=== PATIENT | female | born 1935 | race Two or more races ===

== ENCOUNTER 2017-01-27 19:54 | Emergency (ER) | payer MEDICARE, MEDICAID ==
[2017-01-27] MEDS ORDERED: ONDANSETRON 4 MG/2ML 2 ML VIAL ONE (21:17)
[2017-01-27] MEDS ORDERED: LACTATED RINGERS 1,000 ML ONE (21:17)
[2017-01-27] MEDS ORDERED: FENTANYL 100 MCG/2 ML VIAL ONE ×2 (21:17→23:36)
[2017-01-27 21:24] LABS: ABSOLUTE NEUTROPHIL COUNT 7.5 K/mm3 (1.8-7.7); BASO % 0.4 % (0.2-1.0); EOS # 0.1 (0.0-0.5); EOS % 1.5 % (0.9-2.9); HEMATOCRIT 33.3 % (37.0-47.0); HEMOGLOBIN 10.8 gm/l (12.0-16.0); IMM NEUT% 0.4 % (0-1); LYMPH # 1.2 (1.0-4.8); MEAN CELL VOLUME 104.7 fl (81.0-99.0); MEAN CORPUSCULAR HGB CONC 32.4 g/dl (33.0-37.0); MEAN PLATELET VOLUME 8.8 fl (7.4-10.4); MONO # 0.6 (0.0-0.8); MONO % 6.3 % (4-12); NEUT % 78.4 % (43-75); PLATELET COUNT 182 K/mm3 (130-400); RED CELL DISTRIBUTION WIDTH 13.1 % (11.5-14.5)
[2017-01-27 21:38] LABS: ALBUMIN 3.6 gm/dL (3.5-5.7); CALCIUM 9.6 mg/dL (8.6-10.3)
[2017-01-27 23:41] LABS: URINE BILIRUBIN NEGATIVE (NEGATIVE); URINE BLOOD NEGATIVE (NEGATIVE); URINE GLUCOSE (UA) NEGATIVE (NEGATIVE); URINE LEUKOCYTE ESTERASE NEGATIVE (NEGATIVE); URINE NITRITE NEGATIVE (NEGATIVE); URINE PROTEIN TRACE (NEGATIVE); URINE UROBILINOGEN NORMAL (0-1 mg/dl)
[2017-01-27 23:49] LABS: URINE APPEARANCE CLEAR; URINE COLOR YELLOW
--- NOTE | 2017-01-28 08:29 | RAD ---
Examination: AP pelvis and two-view right hip. Clinical indication:Right hip pain. Ground-level fall. Comparisons:None Findings: Pelvis: The pelvic ring is intact. No displaced fractures identified. The sacrum and anterior sacral neuroforamina are grossly within normal limits. Right hip: Fracture: There is an intertrochanteric fracture. Slight comminution is suggested. There is no impaction or significant displacement currently. Joint space:Maintained. Femoral head:Smooth Acetabulum:Within normal limits. Soft tissues: Atherosclerotic changes are noted. IMPRESSION: Minimally displaced intertrochanteric fracture proximal right femur.
--- NOTE | 2017-01-28 08:30 | RAD ---
EXAMINATION : CHEST - 1 VIEW HISTORY: Ground-level fall. Right hip pain. COMPARISONS: 01/13/2016. 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 Very slight volume loss appears to have developed in the interim may reflect progression. Heart size remains at the upper limits of normal. There is aortic ectasia. No lobar consolidation is identified. There is no visible pneumothorax. No gross effusion is identified. Osteopenia is noted. IMPRESSION: Extensive pulmonary fibrosis. There is been possible progression in comparison to the prior study 01/13/2016. Cardiomegaly and aortic ectasia is again noted.
== END 2017-01-28 00:33 | disposition short-term general hospital (02) ==
LOC: ED 19:54
DX: S72.141A Displaced intertrochanteric fracture of right femur, initial encounter for closed fracture (principal); J84.10 Pulmonary fibrosis, unspecified; I10 Essential (primary) hypertension; W18.09XA Striking against other object with subsequent fall, initial encounter; Y92.009 Unspecified place in unspecified non-institutional (private) residence as the place of occurrence of the external cause
CPT/HCPCS: 85025; 80053; 81003; 71010; 73502; 96375; 96376 ×2; 99284; 96374; 51702; 93005; 99285; J3010 ×2; J2405; J7120